=== PATIENT | male | born 1970 | race Caucasian/White ===

== ENCOUNTER 2017-02-21 15:31 | Emergency (ER) | payer OTHER ==
[2017-02-21 15:37] VITALS: TEMP 98.2
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
[2017-02-21] MEDS ORDERED: TDAP ADULT 0.5 ML INJ (BOOSTRIX) IM ONE (16:16)
[2017-02-21 17:00] VITALS: BP 121/85; PULSE 65; RESP 16; O2SAT 98
== END 2017-02-21 17:00 | disposition home or self-care (01) ==
PROC: 3E0T3CZ (ICD-10-PCS; principal; 2017-02-21)
DX: S62.665A Nondisplaced fracture of distal phalanx of left ring finger, initial encounter for closed fracture (principal); S62.663A Nondisplaced fracture of distal phalanx of left middle finger, initial encounter for closed fracture; S60.413A Abrasion of left middle finger, initial encounter; Z23 Encounter for immunization; V11.4XXA Pedal cycle driver injured in collision with other pedal cycle in traffic accident, initial encounter; Y99.8 Other external cause status; Y93.55 Activity, bike riding
CPT/HCPCS: L3925